=== PATIENT | male | born 1985 | race African-American/Black ===

== ENCOUNTER 2025-01-02 23:21 | Emergency (ER) | payer SELFPAY ==
[~2025-01-02] VITALS: Ht 198.1 cm; Wt 158.8 kg
[2025-01-02 23:42] VITALS: TEMP 98.4
[2025-01-03] MEDS ORDERED: HYDROCODONE/APAP 5/325MG TABLET PO ONE
[2025-01-03] MEDS ORDERED: IV NS 0.9% 1,000 ML BAG IV ONE
[2025-01-03 00:05] VITALS: BP 143/85; O2SAT 97
== END 2025-01-03 00:23 | disposition left against medical advice (07) ==
LOC: ER 23:24
DX: R07.89 Other chest pain (principal); D57.1 Sickle-cell disease without crisis